=== PATIENT | male | born 1960 | race African-American/Black ===

== ENCOUNTER 2017-07-04 16:11 | Emergency (ER) | payer SELFPAY ==
--- NOTE | 2017-07-04 16:38 | PDOC ---
History of Present Illness - General Chief Complaint: Respiratory Stated Complaint: SORE THROAT COUGH Time Seen by Provider: 07/04/17 16:17 - History of Present Illness Initial Comments: 07/04/17 17:30 If complaint: Cold symptoms History of present illness: Patient complains of sore throat, congestion of the head and chest, nonproductive cough, for 2 days Review of systems: Admits high fever last night, subjective, did not take his temperature. No headache, chest pain, shortness of breath, abdominal pain, nausea, vomiting, diarrhea, visual or focal neurologic symptoms, unsteadiness of gait Past medical history: High blood pressure, ran out of medications 2 months ago, "borderline" diabetes on no medication. Seasonal ALLERGIES. Denies coronary artery disease, COPD. Social history: Works as a electric lift truck driver, no tobacco alcohol or nonprescription drugs, fully active and without disability, has gained a considerable amount of weight recently Family history: Diabetes mother and father. No early coronary artery disease, [place] , stroke. Physical exam: Alert and oriented, well-developed well-nourished, no acute distress, cooperative Afebrile, vital signs normal except for moderately elevated blood pressure in the range of 200/130. This was repeated after rest. PERRLA 3 mm, fundi benign with sharp disc margins and good central venous pulsations no hemorrhages or exudates. There is AV nicking present. ENT mild injection of the posterior pharynx without exudate swelling or mass. Ears clear. Conjunctivae clear.\\ Past History - Past Medical History Allergies/Adverse Reactions: Allergies Allergy/AdvReac Type Severity Reaction Status Date / Time aspirin Allergy Mild Verified 07/04/17 16:13 Home Medications: Ambulatory Orders Amlodipine Besylate [Norvasc -] 10 mg PO DAILY #30 tablet 07/04/17 Azithromycin [Zithromax 250mg Tablets -] 250 mg PO UTDICT #6 tab 07/04/17 Guaifenesin AC [Robitussin AC] 10 ml PO Q6H PRN #90 ml MDD 8 07/04/17 Hydrochlorothiazide [Hctz -] 12.5 mg PO DAILY #30 cap 07/04/17 COPD: No HTN: Yes Other medical history: HEMORROIDS, GOUT, HERNIA - Suicide/Smoking/Psychosocial Hx Smoking History: Never smoked Have you smoked in the past 12 months: No Information on smoking cessation initiated: No Hx Alcohol Use: No Drug/Substance Use Hx: No Substance Use Type: None *Physical Exam - Vital Signs Last Vital Signs Temp Pulse Resp BP Pulse Ox 100 F H 110 H 20 196/127 100 07/04/17 16:12 07/04/17 16:12 07/04/17 16:12 07/04/17 16:12 07/04/17 16:12 *DC/Admit/Observation/Transfer - Discharge Dispostion Condition at time of disposition: Stable - Prescriptions Prescriptions: Amlodipine Besylate [Norvasc -] 10 mg PO DAILY #30 tablet Azithromycin [Zithromax 250mg Tablets -] 250 mg PO UTDICT #6 tab Guaifenesin AC [Robitussin AC] 10 ml PO Q6H PRN #90 ml MDD 8 PRN Reason: congestion, cough Hydrochlorothiazide [Hctz -] 12.5 mg PO DAILY #30 cap - Referrals - Patient Instructions - Post Discharge Activity
[2017-07-04 16:39] VITALS: BMI 32.1
[2017-07-04] MEDS ORDERED: LABETALOL HCL 100 MG TABLET (FP) PO ONE ×2 (16:39→17:58)
[2017-07-04] MEDS ORDERED: amLODIPine BESYLATE 5 MG TABLET (FP) PO ONE (17:58)
[2017-07-04] MEDS ORDERED: amLODIPine BESYLATE 5 MG TABLET (FP) ONE (18:05)
[2017-07-04] MEDS ORDERED: ACETAMINOPHEN 500 MG TABLET (FP) ONE (18:50)
[2017-07-04] MEDS ORDERED: ACETAMINOPHEN 325 MG TABLET (FP) PO ONE (19:13)
[2017-07-04 19:42] VITALS: BP 137/84; PULSE 102; TEMP 99.9
--- NOTE | 2017-07-04 19:48 | PDOC ---
*Physical Exam - Vital Signs Last Vital Signs Temp Pulse Resp BP Pulse Ox 99.9 F H 102 H 20 137/84 99 07/04/17 19:41 07/04/17 19:41 07/04/17 19:41 07/04/17 19:41 07/04/17 18:53 ED Treatment Course - Medications Given in the ED: ED Medications Discontinued Medications Generic Name Dose Route Start Last Admin Trade Name Freq PRN Reason Stop Dose Admin Acetaminophen 1,000 mg 07/04/17 19:13 07/04/17 19:15 Tylenol - PO 07/04/17 19:14 1,000 mg ONCE ONE Administration Amlodipine Besylate 5 mg 07/04/17 17:58 07/04/17 18:06 Norvasc - PO 07/04/17 17:59 5 mg ONCE ONE Administration Labetalol HCl 100 mg 07/04/17 16:39 07/04/17 16:52 Normodyne - PO 07/04/17 16:40 100 mg ONCE ONE Administration Labetalol HCl 100 mg 07/04/17 17:58 07/04/17 18:06 Normodyne - PO 07/04/17 17:59 100 mg ONCE ONE Administration Medical Decision Making - Medical Decision Making 07/04/17 19:46 THis patient has a history of HTN who presents to the ER with sore throat Pt signed out to me pending re assessment s/p being given blood pressure medications Selected Entries 07/04/17 19:41 Blood Pressure 137/84 [Right Arm] Pt repeat BP 137/84 Will discharge to home Follow up with PMD Pt should start taking his medications Clinical Impression: Upper respiratory infection, initial presentation Essential hypertension, initial presentation *DC/Admit/Observation/Transfer Diagnosis at time of Disposition: Viral illness Hypertension Qualifiers: Hypertension type: unspecified Qualified Code(s): I10 - Essential (primary) hypertension - Discharge Dispostion Disposition: HOME Condition at time of disposition: Stable - Prescriptions Prescriptions: Amlodipine Besylate [Norvasc -] 10 mg PO DAILY #30 tablet Azithromycin [Zithromax 250mg Tablets -] 250 mg PO UTDICT #6 tab Guaifenesin AC [Robitussin AC] 10 ml PO Q6H PRN #90 ml MDD 8 PRN Reason: congestion, cough Hydrochlorothiazide [Hctz -] 12.5 mg PO DAILY #30 cap - Referrals - Patient Instructions Printed Discharge Instructions: DI for High Blood Pressure, DI for Viral Upper Respiratory Infection -- Adult - Post Discharge Activity
== END 2017-07-04 19:56 | disposition home or self-care (01) ==
LOC: FER 16:11
DX: I10 Essential (primary) hypertension (principal); B34.9 Viral infection, unspecified
CPT/HCPCS: 99282-25